=== PATIENT | male | born 1985 | race Caucasian/White ===

== ENCOUNTER 2016-12-07 00:46 | Emergency (ER) | payer BC ==
--- NOTE | 2016-12-07 01:32 | EDM.PDOC ---
ED HPI NEURO - General Chief Complaint: Behavioral/Psych Stated Complaint: ANXIETY/DEPRESSION Time Seen by Provider: 12/07/16 01:10 Source of Information: Reports: Patient History Limitations: Reports: Intoxication - History of Present Illness INITIAL COMMENTS - FREE TEXT/NARRATIVE: The patient presents with anxiety and depression. He has been dealing with depression for a few years and working with Nancy Rendon. He is on Wellbutrin. He has been depressed lately and not sleeping well. He also has some troubles with alcohol and he was staying off of it for awhile but today he went golfing and had some drinks. He then went to the bar and then to a friend' s house. They were worried about him and called his father and he was brought here for help. He has had thoughts of hurting himself but he has no plans and he knows he would not do it. He is having bad nightmares and restless leg and not sleeping well. He denies any hallucinations. He has no headache, chest pain, fever, chills, cough, abdominal pain, nausea and vomiting. Timing/Duration: Reports: Week(s): Associated Symptoms: Reports: no other symptoms - Related Data Allergies/ADRs: Allergies Allergy/AdvReac Type Severity Reaction Status Date / Time shellfish derived Allergy Nausea and Verified 02/02/14 12:52 Vomiting Home Meds: Home Meds LORazepam [Ativan] 1 mg PO Q8HR PRN #20 tablet 12/07/16 [Rx] buPROPion [Wellbutrin] 100 mg PO BID 12/07/16 [History] Past Medical History Psychiatric History: Reports: Anxiety, Depression Social & Family History - Family History Family Medical History: Noncontributory - Tobacco Use Smoking Status *Q: Never Smoker - Caffeine Use Caffeine Use: Reports: None - Alcohol Use Number of Drinks Per Day: 6 - Recreational Drug Use Recreational Drug Use: No ED ROS GENERAL - Review of Systems Review Of Systems: See Below Constitutional: Reports: no symptoms HEENT: Reports: No symptoms Respiratory: Reports: No Symptoms Cardiovascular: Reports: No symptoms Endocrine: Reports: no symptoms GI/Abdominal: Reports: No symptoms : Reports: no symptoms Musculoskeletal: Reports: no symptoms Skin: Reports: no symptoms Neurological: Reports: No Symptoms ED EXAM, NEURO - Physical Exam Exam: See Below Exam Limited By: Intoxication (But very cooperative) General Appearance: alert, no apparent distress Ears: normal external exam Nose: normal inspection Head Exam: atraumatic, normocephalic Neck: normal inspection Respiratory/Chest: no respiratory distress, lungs clear, normal breath sounds Cardiovascular: regular rate, rhythm, no edema, no murmur GI/Abdominal: soft, non tender, no organomegaly, no mass Neurological: alert, no motor/sensory deficits, oriented x 3 Course - Vital Signs Last Recorded V/S: Last Vital Signs Temp 97.3 F 12/07/16 01:02 Pulse 100 12/07/16 01:02 Resp 16 12/07/16 01:02 BP 147/90 H 12/07/16 01:02 Pulse Ox 100 12/07/16 01:02 - Orders/Labs/Meds Orders: Active Orders 24 hr Category Date Time Status Cardiac Monitoring [RC] . DIRECTED Care 12/07/16 01:26 Active Labs: Laboratory Tests 12/07/16 12/07/16 12/07/16 Range/Units 01:33 01:33 01:42 WBC 7.19 (4.23-9.07) K/mm3 RBC 5.02 (4.63-6.08) M/mm3 Hgb 16.7 (13.7-17.5) gm/L Hct 47.3 (40.1-51.0) % MCV 94.2 H (79.0-92.2) fl MCH 33.3 H (25.7-32.2) pg MCHC 35.3 (32.2-35.5) g/dl RDW Std Deviation 43.7 (35.1-43.9) fL Plt Count 239 (163-337) K/mm3 MPV 8.3 L (9.4-12.3) fl Neut % (Auto) 59.6 (34.0-67.9) % Lymph % (Auto) 33.2 (21.8-53.1) % Mcdonough % (Auto) 6.3 (5.3-12.2) % Eos % (Auto) 0.7 L (0.8-7.0) Baso % (Auto) 0.1 (0.1-1.2) % Neut # (Auto) 4.28 (1.78-5.38) K/mm3 Lymph # (Auto) 2.39 (1.32-3.57) K/mm3 Mcdonough # (Auto) 0.45 (0.30-0.82) K/mm3 Eos # (Auto) 0.05 (0.04-0.54) K/mm3 Baso # (Auto) 0.01 (0.01-0.08) K/mm3 Sodium 144 (136-145) mEq/L Potassium 4.5 (3.5-5.1) mEq/L Chloride 105 (98-107) mEq/L Carbon Dioxide 28 (21-32) mEq/L Anion Gap 15.5 H (5-15) BUN 8 (7-18) mg/dL Creatinine 1.3 (0.7-1.3) mg/dL Est Cr Clr Drug Dosing 91.45 mL/min Estimated GFR (MDRD) > 60 (>60) mL/min BUN/Creatinine Ratio 6.2 L (14-18) Glucose 134 H (74-106) mg/dL Calcium 9.3 (8.5-10.1) mg/dL Total Bilirubin 0.2 (0.2-1.0) mg/dL AST 20 (15-37) U/L ALT 43 (16-63) U/L Alkaline Phosphatase 49 (46-116) U/L Total Protein 8.1 (6.4-8.2) g/dl Albumin 4.4 (3.4-5.0) g/dl Globulin 3.7 gm/dL Albumin/Globulin Ratio 1.2 (1-2) TSH 3rd Generation 0.910 (0.358-3.74) uIU/mL Urine Opiates Screen Negative (NEGATIVE) Ur Buprenorphine Scrn Negative (NEGATIVE) Ur Oxycodone Screen Negative (NEGATIVE) Urine Methadone Screen Negative (NEGATIVE) Ur Propoxyphene Screen Negative (NEGATIVE) Ur Barbiturates Screen Negative (NEGATIVE) Ur Tricyclics Screen Negative (NEGATIVE) Ur Phencyclidine Scrn Negative (NEGATIVE) Ur Amphetamine Screen Negative (NEGATIVE) U Methamphetamines Scrn Negative (NEGATIVE) U Benzodiazepines Scrn Presumptive positive H (NEGATIVE) U Cocaine Metab Screen Negative (NEGATIVE) U Marijuana (THC) Screen Negative (NEGATIVE) Ethyl Alcohol 0.13 (0.00) gm% - Re-Assessments/Exams Free Text/Narrative Re-Assessment/Exam: 12/07/16 01:31 I ordered labs and a UDS. 12/07/16 06:04 His CBC and CMP look good. His ETOH was elevated at 0.13. His urine drug screen was positive for benzos. He slept for a few hours here and he feels better. He is going to follow up with a psychiatrist through [place] through [facility]. Until then I will give him some ativan for him to take at night to help him sleep. Departure - Departure Time of Disposition: 06:10 Disposition: Home, Self-Care 01 Condition: good Clinical Impression: Depressive disorder, Anxiety Prescriptions: LORazepam [Ativan] 1 mg PO Q8HR PRN #20 tablet PRN Reason: Anxiety Referrals: Nancy Rendon NP [Primary Care Provider] - Catrachito Duncan MD [Physician] - 1 Week Forms: ED Department Discharge Additional Instructions: Take an ativan before bed to help you sleep. You can also take the ativan every 8 hours as needed for anxiety. Follow up with the pyschiatrist from [place]. If that does not work, we have a psychiatrist from [place] that who use through [facility]. I have attached his contact information. Please return if you are worse such as feelings of suicide or hearing voices or seeing things. - My Orders Last 24 Hours: My Active Orders 12/07/16 01:26 Cardiac Monitoring [RC] . DIRECTED - Assessment/Plan Last 24 Hours: My Active Orders 12/07/16 01:26 Cardiac Monitoring [RC] . DIRECTED
[2016-12-07 06:32] VITALS: BP 145/85
== END 2016-12-07 06:32 | disposition home or self-care (01) ==
LOC: JD.ED 00:46
DX: F32.9 Major depressive disorder, single episode, unspecified (principal); F41.9 Anxiety disorder, unspecified; Z91.013 Allergy to seafood; Z79.899 Other long term (current) drug therapy
CPT/HCPCS: 36415; 80053; 80306; 84443; 85025; 99284; G0480; 99283